=== PATIENT | female | born 1950 | race Caucasian/White ===

== ENCOUNTER 2018-08-24 17:19 | Emergency (ER) | payer MEDICARE ==
[~2018-08-24] VITALS: Ht 162.6 cm; Wt 50.8 kg
[2018-08-24] MEDS ORDERED: NORCO 5-325 TA1 EACH PO (17:36)
[2018-08-24] MEDS ORDERED: COZAAR 25 MG TA25 M1 PO (17:36)
[2018-08-24] MEDS ORDERED: SYNTHROID100 MC1 PO (17:36)
[2018-08-24] MEDS ORDERED: IBUPROFEN 400400 M2 PO (17:36)
[2018-08-24 17:39] LABS: URINE BILIRUBIN NEGATIVE (Negative); URINE BLOOD TRACE (Negative); URINE CLARITY CLEAR; URINE COLOR YELLOW; URINE GLUCOSE-RANDOM NEGATIVE (Negative); URINE KETONES NEGATIVE (Negative); URINE LEUKOCYTES-REFLEX NEGATIVE (Negative); URINE NITRITE-REFLEX NEGATIVE (Negative); URINE PROTEIN NEGATIVE (Negative); URINE UROBILINOGEN 0.2 E.U./dl (0.2-1.0)
[2018-08-24 17:55] LABS: HEMATOCRIT 41.3 % (37.0-47.0); HEMOGLOBIN 13.5 gm/dL (12.0-15.0); MCH 30.6 pg (26.0-34.0); MCHC 32.7 g/dL (28.0-37.0); MCV 93.8 fL (80.0-100.0); MPV 8.6 fl. (7.2-11.1); NUCLEATED RBCS 0 /100WBC; PLATELET COUNT* 263 thou/uL (150-400); RDW-CV 16.8 % (10.5-14.5); WBC 7.3 thou/uL (4.0-11.0)
[2018-08-24 18:00] LABS: CREATININE 0.8 mg/dL (0.6-1.3); POTASSIUM 3.6 mmol/L (3.5-5.1)
[2018-08-24 18:04] LABS: ALBUMIN 3.5 g/dL (3.4-5.0); TOTAL BILIRUBIN 0.4 mg/dL (<0.1-1.0); TOTAL PROTEIN 7.3 g/dL (6.4-8.2)
[2018-08-24 18:14] LABS: ABSOLUTE EOSINOPHILS 0.1 thou/uL (0.0-0.7); ABSOLUTE LYMPHOCYTES 0.4 thou/uL (0.8-5.3); ABSOLUTE MONOCYTES 0.1 thou/uL (0.0-1.2); ABSOLUTE NEUTROPHILS 6.8 thou/uL (1.6-8.1); PLATELET ESTIMATE ADEQUATE
[2018-08-24 18:15] LABS: TARGET CELLS 1+
[2018-08-24] MEDS ORDERED: ZOFRAN4 MG PO (18:31)
[2018-08-24 18:39] VITALS: BP 123/70
== END 2018-08-24 18:40 | disposition home or self-care (01) ==
LOC: M.ERS 17:19
PROVIDERS: Nurse Practitioner Family
DX: R11.2 Nausea with vomiting, unspecified (principal); R50.9 Fever, unspecified; I10 Essential (primary) hypertension; E03.9 Hypothyroidism, unspecified; J45.909 Unspecified asthma, uncomplicated; F17.210 Nicotine dependence, cigarettes, uncomplicated; Z88.0 Allergy status to penicillin; Z88.5 Allergy status to narcotic agent